=== PATIENT | male | born 1965 | race Caucasian/White ===

== ENCOUNTER 2018-08-06 17:13 | Emergency (ER) | payer MEDICAID ==
[~2018-08-06] VITALS: Ht 157.5 cm; Wt 74.0 kg
[2018-08-06] MEDS ORDERED: GEMF600T4 PO (17:28)
[2018-08-06] MEDS ORDERED: ATOR40TA70 PO (17:28)
[2018-08-06] MEDS ORDERED: FISH GT (17:28)
[2018-08-06] MEDS ORDERED: ATEN-42 PO (17:28)
[2018-08-06] MEDS ORDERED: LEVO75TA7 PO (17:28)
[2018-08-06] MEDS ORDERED: RANI15SY PO (17:28)
[2018-08-06] MEDS ORDERED: KETOROLAC 30MG/ML VIAL IV STA (19:55)
[2018-08-06] MEDS ORDERED: SODIUM CHLORIDE 0.9% 1,000 ML IV ONE (19:55)
[2018-08-06 21:06] LABS: BASOPHILS % 1.1 % (0.0-2.0); HEMATOCRIT. 44.6 % (42.0-52.0); HEMOGLOBIN. 15.6 g/dL (14.0-18.0); LYMPHOCYTES % 23.3 % (20.0-50.0); MEAN CORPUSCULAR HEMOGLOBIN 30.8 pg (28.0-32.0); MEAN CORPUSCULAR VOLUME 88.2 fL (80.0-94.0); MEAN PLATELET VOLUME 10.3 fl (7.4-10.4); MONOCYTES % 6.8 % (2.0-8.0); NEUTROPHILS % 61.8 % (40.0-76.0); PLATELET 154 x1000/uL (130-400); RED BLOOD CELL COUNT 5.06 mill/uL (4.7-6.1); RED CELL DISTRIBUTION WIDTH 13.3 % (11.6-14.6)
[2018-08-06 21:13] LABS: CHLORIDE 103 mEq/L (98-107)
[2018-08-06 21:15] LABS: INR 1.1; PROTHROMBIN TIME 10.8 sec (9.1-11.1)
[2018-08-06 21:39] LABS: CLARITY URINE CLOUDY (CLEAR); COLOR URINE YELLOW (YELLOW); KETONES URINE NEGATIVE (NEGATIVE); LEUKOCYTE ESTERASE URINE NEGATIVE (NEGATIVE); NITRITE URINE NEGATIVE (NEGATIVE); OCCULT BLOOD URINE NEGATIVE (NEGATIVE); PH URINE 7.5 (4.5-8.0); PROTEIN URINE NEGATIVE (NEGATIVE); SPECIFIC GRAVITY URINE 1.027 (1.005-1.030); UROBILINOGEN URINE 0.2 E.U./dL (0.2-1.0)
[2018-08-07 00:25] VITALS: BP 127/73
== END 2018-08-07 00:45 | disposition home or self-care (01) ==
LOC: ER 17:13
DX: N50.811 Right testicular pain (principal); R82.71 Bacteriuria; N45.2 Orchitis; R51 Headache; R00.2 Palpitations; G89.29 Other chronic pain; R10.32 Left lower quadrant pain; R42 Dizziness and giddiness; E78.00 Pure hypercholesterolemia, unspecified; I10 Essential (primary) hypertension; E03.9 Hypothyroidism, unspecified; E78.1 Pure hyperglyceridemia; E78.5 Hyperlipidemia, unspecified; Z79.899 Other long term (current) drug therapy
CPT/HCPCS: 36415; 76870; 80053; 81003; 83690; 85025; 85610; 93005; 93976; 96374; 99284; J1885; J7030

== ENCOUNTER 2024-10-24 10:04 | Emergency (ER) | payer MEDICAID, OTHER ==
[~2024-10-24] VITALS: Ht 167.6 cm; Wt 76.2 kg
[~2024-10-24 10:04] MED LIST: ATEN-42 PO; ATOR-2 PO; FENO200C27 PO; FISH GT; IMOD PO; LEVO-65 PO; LEVO100T9 PO; METR-167 PO
[2024-10-24 10:12] VITALS: TEMP 37.5; O2SAT 98
[2024-10-24 13:07] LABS: INFLUENZA TYPE A Presumptive Negative (Pres. Neg.)
[2024-10-24 13:08] LABS: INFLUENZA TYPE B Presumptive Negative (Pres. Neg.)
[2024-10-24] MEDS ORDERED: BENZ100C86 MT (13:59)
[2024-10-24] MEDS ORDERED: BENZ1LOZ73 MT (13:59)
[2024-10-24 14:12] VITALS: BP 126/65; PULSE 74; RESP 17; O2SAT 99
== END 2024-10-24 14:17 | disposition home or self-care (01) ==
LOC: ER 10:04
DX: B34.9 Viral infection, unspecified (principal); E78.00 Pure hypercholesterolemia, unspecified; I10 Essential (primary) hypertension; Z79.899 Other long term (current) drug therapy; Z20.822 Contact with and (suspected) exposure to COVID-19
CPT/HCPCS: 71045; 87070; 87426; 87430; 87804; 99284